=== PATIENT | female | born 1980 | race Caucasian/White ===

== ENCOUNTER 2018-01-05 08:23 | Emergency (ER) | payer MEDICAID, OTHER ==
[2018-01-05 08:42] VITALS: RESP 18
--- NOTE | 2018-01-05 09:00 | C.PDOC ---
History Of Present Illness 37 y/o female presents to ED with complaints of congestion and cough for 3 days. Patient's son is also at ED for similar symptoms and states no medication was taken. Patient denies fever, chills, nausea, vomiting or any other complaints at this time. Time Seen by Provider: 01/05/18 08:52 Chief Complaint (Nursing): Cough, Cold, Congestion History Per: Patient History/Exam Limitations: no limitations Onset/Duration Of Symptoms: Days Current Symptoms Are (Timing): Still Present Associated Symptoms: Cough, Nasal Congestion Past Medical History Reviewed: Historical Data, Nursing Documentation, Vital Signs Vital Signs: Last Vital Signs Temp 98.0 F 01/05/18 09:34 Pulse 86 01/05/18 09:34 Resp 18 01/05/18 09:34 BP 152/82 H 01/05/18 09:34 Pulse Ox 99 01/05/18 09:34 - Medical History PMH: HTN Surgical History: Cholecystectomy Family History: States: No Known Family Hx - Social History Hx Tobacco Use: No Hx Alcohol Use: Yes Hx Substance Use: No - Immunization History Hx Tetanus Toxoid Vaccination: Yes Hx Influenza Vaccination: Yes Hx Pneumococcal Vaccination: No Review Of Systems Constitutional: Negative for: Fever, Chills ENT: Positive for: Nose Congestion Cardiovascular: Negative for: Chest Pain Respiratory: Positive for: Cough. Negative for: Shortness of Breath Gastrointestinal: Negative for: Nausea, Vomiting, Abdominal Pain Skin: Negative for: Rash Physical Exam - Physical Exam Appears: Non-toxic, No Acute Distress Skin: Warm, Dry, No Rash Head: Atraumatic, Normacephalic Eye(s): bilateral: Normal Inspection, EOMI Ear(s): Bilateral: Normal (no erythema) Nose: Normal, No Flaring Oral Mucosa: Moist Throat: Normal, No Erythema, No Exudate Neck: Normal ROM, Supple Chest: Symmetrical Cardiovascular: Rhythm Regular, No Murmur Respiratory: Normal Breath Sounds, No Rales, No Rhonchi, No Wheezing Gastrointestinal/Abdominal: Soft, No Tenderness, No Guarding, No Rebound Extremity: Bilateral: Atraumatic, Normal Color And Temperature, Normal ROM Neurological/Psych: Oriented x3, Normal Speech Gait: Steady ED Course And Treatment O2 Sat by Pulse Oximetry: 98 (RA) Pulse Ox Interpretation: Normal Medical Decision Making Medical Decision Making: Patient with cough and congestion for 3 days, symptoms likely viral URI. Patient has no fever, and appears non-toxic and in no distress. Rx given. Patient advised to rest, drink fluids and take medications for supportive treatment. Patient stable for discharge and given follow up instructions. Disposition Counseled Patient/Family Regarding: Diagnosis, Need For Followup, Rx Given - Disposition Referrals: Gwen Raymundo [Staff Provider] - Disposition: HOME/ ROUTINE Disposition Time: 08:59 Condition: STABLE Additional Instructions: You have viral upper respiratory infection. Take Tylenol or Motrin alternating every 4-6 hours for Fever 100.4F or higher. Rest and drink plenty of fluids. May use cool mist humidifier or vaporizer in room. Take prescription medications to help with symptoms and cough medicine as needed every 6-8 hours. Follow up with your primary medical doctor or clinic in 1 week for further evaluation. Prescriptions: Fluticasone Propionate [Flonase] 1 spray NS DAILY #1 bottle Loratadine [Claritin] 10 mg PO DAILY #20 tab Promethazine DM [Phenergan DM Syrup] 10 ml PO Q8 PRN #300 ml PRN Reason: Cough Instructions: Upper Respiratory Infection (ED) Forms: [employer] (Samoan), Work Excuse - POA Present On Arrival: None - Clinical Impression Clinical Impression: Upper respiratory infection - PA / DIRECTOR OF ROOMS / Resident Statement MD/DO has reviewed & agrees with the documentation as recorded. - Scribe Statement The provider has reviewed the documentation as recorded by the Yovanaibkristopher Francisco All medical record entries made by the Yovanaibkristopher were at my direction and personally dictated by me. I have reviewed the chart and agree that the record accurately reflects my personal performance of the history, physical exam, medical decision making, and the department course for this patient. I have also personally directed, reviewed, and agree with the discharge instructions and disposition.
[2018-01-05 09:35] VITALS: BP 152/82; PULSE 86; TEMP 98
[2018-01-05 10:01] VITALS: O2SAT 98
== END 2018-01-05 09:35 | disposition home or self-care (01) ==
LOC: C.ER 08:23
DX: J06.9 Acute upper respiratory infection, unspecified (principal); I10 Essential (primary) hypertension

== ENCOUNTER 2018-10-30 11:34 | Emergency (ER) | payer MEDICAID ==
[2018-10-30 11:44] VITALS: RESP 18
--- NOTE | 2018-10-30 12:07 | C.PDOC ---
History Of Present Illness 38 year old female presents to the emergency department status-post sustaining a puncture wound to her lateral left leg while shaving prior to arrival. Patient states that she has varicose veins, and feels as if she punctured it, as it has happened in the past. Since sustaining the wound, patient reports that the bleeding has not stopped. She denies weakness or numbness. Time Seen by Provider: 10/30/18 11:49 Chief Complaint (Nursing): Abnormal Skin Integrity History Per: Patient History/Exam Limitations: no limitations Onset/Duration Of Symptoms: Hrs Current Symptoms Are (Timing): Still Present Location Of Injury: Left: Leg Quality Of Symptoms: Draining (blood) Past Medical History Reviewed: Historical Data, Nursing Documentation, Vital Signs Vital Signs: Last Vital Signs Temp 97.9 F 10/30/18 11:40 Pulse 90 10/30/18 11:40 Resp 18 10/30/18 11:40 BP 146/85 10/30/18 11:40 Pulse Ox 100 10/30/18 11:40 - Medical History PMH: HTN Surgical History: Cholecystectomy Family History: States: No Known Family Hx - Social History Hx Tobacco Use: No Hx Alcohol Use: Yes Hx Substance Use: No - Immunization History Hx Tetanus Toxoid Vaccination: Yes Hx Influenza Vaccination: Yes Hx Pneumococcal Vaccination: No Review Of Systems Except As Marked, All Systems Reviewed And Found Negative. Skin: Positive for: Other (wound to left leg) Neurological: Negative for: Weakness, Numbness Physical Exam - Physical Exam Appears: Well, Non-toxic, No Acute Distress Skin: Warm, Dry, Other (pinpoint area of puncture wound with positive bleeding noted to the lateral left leg.) Head: Atraumatic, Normacephalic Eye(s): bilateral: Normal Inspection, PERRL, EOMI Neck: Supple Chest: Symmetrical Extremity: Normal ROM (all extremities) Neurological/Psych: Oriented x3, Normal Speech, Normal Cognition ED Course And Treatment O2 Sat by Pulse Oximetry: 100 (RA) Pulse Ox Interpretation: Normal Medical Decision Making Medical Decision Making: Pressure was applied to the wound. Pressure dressing using aaliyah wrap was applied by me with successful hemostasis. Disposition - Disposition Referrals: Gwen Raymundo [Staff Provider] - Disposition: HOME/ ROUTINE Disposition Time: 12:54 Condition: STABLE Additional Instructions: Keep the legs moisturized with vaseline. Return if worsened. Instructions: Varicose Veins (DC) Forms: [employer] ([place]) - Clinical Impression Clinical Impression: Bleeding from varicose vein - PA / REJECT OPENER / Resident Statement MD/DO has reviewed & agrees with the documentation as recorded. - Scribe Statement The provider has reviewed the documentation as recorded by the Scribe (Braxton Rankin) All medical record entries made by the Scribe were at my direction and personally dictated by me. I have reviewed the chart and agree that the record accurately reflects my personal performance of the history, physical exam, medical decision making, and the department course for this patient. I have also personally directed, reviewed, and agree with the discharge instructions and disposition.
[2018-10-30 13:05] VITALS: BP 166/96; PULSE 78; TEMP 98.3
[2018-10-30 21:39] VITALS: O2SAT 100
== END 2018-10-30 13:05 | disposition home or self-care (01) ==
LOC: C.ER 11:34
DX: I83.892 Varicose veins of left lower extremity with other complications (principal); I10 Essential (primary) hypertension